=== PATIENT | male | born 1985 | race Caucasian/White ===

== ENCOUNTER 2017-02-06 13:30 | Emergency (ER) | payer MEDICAID ==
[2017-02-06 14:03] VITALS: TEMP 97.7
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
[2017-02-06] MEDS ORDERED: IBUPROFEN 600 MG TAB PO ONE (15:00)
[2017-02-06] MEDS ORDERED: OXYCODONE/APAP 5/325 TAB ONE (15:44)
[2017-02-06] MEDS ORDERED: OXYCODONE/APAP 5/325 TAB PO ONE (15:48)
[2017-02-06 16:08] VITALS: BP 119/71; PULSE 81; RESP 20; O2SAT 92
== END 2017-02-06 16:08 | disposition home or self-care (01) ==
DX: S70.01XA Contusion of right hip, initial encounter (principal); F17.200 Nicotine dependence, unspecified, uncomplicated; V18.0XXA Pedal cycle driver injured in noncollision transport accident in nontraffic accident, initial encounter; Y99.8 Other external cause status; Y93.89 Activity, other specified

== ENCOUNTER 2018-04-06 02:39 | Emergency (ER) | payer MEDICAID ==
[2018-04-06] MEDS ORDERED: HYDROCODONE/APAP 5/325 TAB ONE (03:00)
[2018-04-06] MEDS ORDERED: HYDROCODONE/APAP 5/325 TAB PO ONE (03:03)
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
[2018-04-06 03:41] VITALS: BP 119/79
[2018-04-06] MEDS ORDERED: HYDROCOD/APAP 5/325 PREPACK#6 BTL TAKEHOME ONE (03:52)
[2018-04-06] MEDS ORDERED: LIDOCAINE 4%/MENTHOL 1% PATCH TD ONE (03:53)
--- NOTE | 2018-04-06 12:42 | ASMTCMCOM ---
CM Note CM Note Notes: CM follow up for orthopedic referral: Patient contacted to confirm follow up with Dr. Zee after ER visit early this morning. Patient confirms that he did call sports medicine (Dr. Zee) and left a message. I have called sports med and spoke with [facility]ida regarding our referral. Patient ER report, shoulder x-ray, and patient demographics faxed [phone] to Zaida. She confirms that they will contact patient to schedule an appointment. Patient informed Date Signed: 04/06/2018 12:41 PM Electronically Signed By:Erin Robert RN
[2018-04-06] MEDS ORDERED: PATCH REMOVAL 1 EA PATCH TD SCH (21:00)
== END 2018-04-06 04:02 | disposition home or self-care (01) ==
DX: S42.021A Displaced fracture of shaft of right clavicle, initial encounter for closed fracture (principal); Z87.891 Personal history of nicotine dependence; X58.XXXA Exposure to other specified factors, initial encounter
CPT/HCPCS: A4565

== ENCOUNTER 2018-07-18 09:59 | Emergency (ER) | payer MEDICAID ==
[2018-07-18] MEDS ORDERED: OXYCODONE/APAP 5/325 TAB PO ONE (10:26)
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
[2018-07-18 11:33] VITALS: BP 130/78
== END 2018-07-18 11:33 | disposition home or self-care (01) ==
PROC: 0PSPXZZ Reposition Right Metacarpal, External Approach (ICD-10-PCS; principal; 2018-07-18)
DX: S62.241A Displaced fracture of shaft of first metacarpal bone, right hand, initial encounter for closed fracture (principal); V18.0XXA Pedal cycle driver injured in noncollision transport accident in nontraffic accident, initial encounter; Y92.830 Public park as the place of occurrence of the external cause; Z87.891 Personal history of nicotine dependence

== ENCOUNTER → 2018-11-18 | Outpatient (CLI) | payer MEDICAID | LOC: FIMAGING 11:29 | PROVIDERS: ATTEND Orthopaedic Surgery Sports Medicine | DX: F40.240 Claustrophobia (principal); M25.511 Pain in right shoulder ==

== ENCOUNTER 2019-01-13 15:27 | Inpatient (IN) | payer MEDICAID ==
[2019-01-13] MEDS ORDERED: IOPAMIDOL (ISOVUE-300) 100 ML BTL ONE ×2 (15:53→17:42)
[2019-01-13 15:59] LABS: PLATELET COUNT 232 10^3/uL (150-400)
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
[2019-01-13 16:14] LABS: INR 1.09 (0.83-1.16); PROTIME(PATIENT) 13.7 SEC (12.0-15.0)
[2019-01-13] MEDS ORDERED: PROPOFOL/EMULSION 500 MG/50 ML BOTTLE IV ONE (16:19)
[2019-01-13] MEDS ORDERED: ePHEDrine SULFATE 25 MG/5 ML SYR ONE (16:20)
[2019-01-13] MEDS ORDERED: PHENYLEPHRINE HCL 100 MCG/ML SYR ONE (16:20)
[2019-01-13] MEDS ORDERED: fentaNYL 100 MCG/2 ML INJ ONE ×2 (16:27→17:10)
[2019-01-13] MEDS ORDERED: ONDANSETRON 4 MG/2 ML VIAL ONE (16:30)
[2019-01-13] MEDS ORDERED: fentaNYL 100 MCG/2 ML INJ IVP ONE ×2 (17:02→18:00)
[2019-01-13] MEDS ORDERED: ONDANSETRON 4 MG/2 ML VIAL IVP ONE (17:03)
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
[2019-01-13] MEDS ORDERED: NALOXONE HCL 0.4 MG/ML INJ IVP PRN ×3 (17:09→21:11)
[2019-01-13] MEDS ORDERED: MEPERIDINE 25 MG/ML SYR IVP PRN (17:32)
[2019-01-13] MEDS ORDERED: fentaNYL 100 MCG/2 ML INJ IVP PRN (17:32)
[2019-01-13] MEDS ORDERED: FLUMAZENIL 0.5 MG/5 ML MDV IVP PRN (17:32)
[2019-01-13] MEDS ORDERED: GLUCAGON HCL 1 MG VIAL IVP PRN (17:32)
[2019-01-13] MEDS ORDERED: HEPARIN 10,000 UNIT/10 ML MDV (1,000 UNIT/ML) IVP PRN (17:32)
[2019-01-13] MEDS ORDERED: MIDAZOLAM 2 MG/2 ML VIAL IVP PRN (17:32)
[2019-01-13] MEDS ORDERED: PROTAMINE SULFATE 50 MG/5 ML VIAL IVP PRN (17:32)
[2019-01-13] MEDS ORDERED: ALTEPLASE 2 MG VIAL IVP PRN (17:32)
--- NOTE | 2019-01-13 17:51 | PDHPUP ---
History & Physical Update H&P update statement: This history and physical update is based on an assessment of the patient which was completed after admission or registration (within 24 hours), but prior to the surgery/procedure. Splenic laceration with abd hemorrhage. Hemodynamically stable. Discussed with Dr. Gudino of surgery, plan for transcatheter embolization of the splenic hemorrhage. With any hemodynamic compromise, plan for conversion to surgical splenectomy. H&P update: H&P reviewed & patient examined, no change in patient's condition since H&P completed
[2019-01-13] MEDS ORDERED: MIDAZOLAM 2 MG/2 ML VIAL ONE ×2 (18:05)
--- NOTE | 2019-01-13 18:38 | PDRADPN ---
Radiology Procedure Note Date of Procedure: 01/13/19 Radiologist: Jaiden Pena Anesthesia: IV Sedation Pre-op Diagnosis: Splenic laceration Post-op Diagnosis: Splenic laceration Indication: Intra-abdominal hemorrhage Procedure: Splenic artery embolization Finding(s): Gelfoam emoblization of splenic artery without complication Inf/Abcess present in the surg proc area at time of surgery?: No
--- NOTE | 2019-01-13 18:39 | PDPROPOC ---
Sedation Plan of Care Sedation Plan of Care: vital signs stable, mental status noted, patient educated of risks, benefits, alternatives, patient can tolerate sedation ASA Classification: ASA 3 Planned drugs: fentanyl, midazolam Mallampati Score: Class 1 Mallampati Reference Image: Patient passed 3-3-2 rule?: Yes
[2019-01-13] MEDS: ONDANSETRON 4 MG/2 ML VIAL IVP PRN ×2 (19:37→23:00)
[2019-01-13] MEDS: oxyCODONE IR 5 MG TAB PO PRN (19:37)
[2019-01-13] MEDS: FAMOTIDINE 20 MG/NACL 50 ML IV SCH (20:08)
[2019-01-13] MEDS: KETAMINE 500 MG in NS 500 ML IV SCH (21:34)
[2019-01-13] MEDS: morphINE PCA 30 MG/30 ML PCA IV PRN (22:04)
[2019-01-14] MEDS: morphINE PCA 30 MG/30 ML PCA IV PRN ×3 (01:53→21:52)
[2019-01-14] MEDS: KETAMINE 500 MG in NS 500 ML IV SCH (05:19)
[2019-01-14] MEDS: NS 1,000 ML IV SCH ×2 (06:32→16:17)
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
[2019-01-14 07:58] LABS: PLATELET COUNT 172 10^3/uL (150-400)
[2019-01-14] MEDS ORDERED: POLYETHYLENE GLYCOL 3350 17 GM PKT PO PRN (08:39)
[2019-01-14] MEDS ORDERED: MAGNESIUM HYDROXIDE 30 ML UDCUP PO PRN (08:39)
[2019-01-14] MEDS ORDERED: BISACODYL 10 MG SUPP PR PRN (08:39)
[2019-01-14] MEDS ORDERED: LACTULOSE 20 GM/30 ML UDCUP PO PRN (08:39)
[2019-01-14] MEDS: FAMOTIDINE 20 MG/NACL 50 ML IV SCH ×2 (09:26→20:22)
[2019-01-14] MEDS: SENNOSIDES/DOCUSATE SODIUM TAB PO SCH ×2 (09:26→20:36)
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
[2019-01-14] MEDS: ONDANSETRON 4 MG/2 ML VIAL IVP PRN (11:08)
[2019-01-14] MEDS: oxyCODONE IR 5 MG TAB PO PRN ×3 (11:53→21:58)
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
[2019-01-14] MEDS ORDERED: ZOLPIDEM TARTRATE 5 MG TAB PO PRN (21:23)
[2019-01-15] MEDS ORDERED: LIDOCAINE 4%/MENTHOL 1% PATCH TD ONE (01:00)
[2019-01-15] MEDS: oxyCODONE IR 5 MG TAB PO PRN ×2 (02:25→08:04)
[2019-01-15] MEDS: LORazepam 2 MG/ML INJ IVP PRN ×2 (02:26→22:23)
[2019-01-15] MEDS: morphINE PCA 30 MG/30 ML PCA IV PRN ×3 (02:32→14:01)
[2019-01-15 05:06] LABS: PLATELET COUNT 152 10^3/uL (150-400)
[2019-01-15] MEDS ORDERED: LORazepam 2 MG/ML INJ IVP ONE (06:00)
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
[2019-01-15] MEDS ORDERED: NS 1,000 ML IV ONE (07:31)
[2019-01-15] MEDS ORDERED: IOPAMIDOL (ISOVUE 370) 100 ML BTL IV ONE (08:14)
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
[2019-01-15] MEDS ORDERED: CITRATE DEXTROSE SOLN 500 ML BAG ONE (09:09)
[2019-01-15] MEDS ORDERED: BUPIVACAINE 0.25% 30 ML SDV ONE (09:11)
[2019-01-15] MEDS ORDERED: BACITRACIN 50,000 UNITS/10 ML SYR IRR ONE (09:12)
[2019-01-15] MEDS ORDERED: POLYMYXIN B SULFATE 500,000 UNIT/10 ML SYR IRR ONE (09:12)
[2019-01-15] MEDS: LR 1,000 ML IV SCH ×3 (09:30→21:24)
[2019-01-15] MEDS ORDERED: MIDAZOLAM 2 MG/2 ML VIAL IVP ONE (09:38)
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
[2019-01-15] MEDS ORDERED: LIDOCAINE 2% 100 MG/5 ML SYR ONE (09:43)
[2019-01-15] MEDS ORDERED: PROPOFOL 200 MG/20 ML VIAL ONE (09:43)
[2019-01-15] MEDS ORDERED: fentaNYL 100 MCG/2 ML INJ ONE (09:43)
[2019-01-15] MEDS ORDERED: ROCURONIUM 50 MG/5 ML VIAL ONE (09:44)
[2019-01-15] MEDS ORDERED: ceFAZolin 2 GM/DEXTROSE 100 ML IV ONE (10:07)
[2019-01-15] MEDS ORDERED: PHM DO NOT USE-BUPIVACAINE 0.25% THORACOTOMY MISC SCH (10:15)
[2019-01-15] MEDS ORDERED: BUPIVACAINE 0.25% 270 ML in PUMP SET 1 EA NB SCH (10:30)
[2019-01-15] MEDS ORDERED: HYDROmorphONE/DILAUDID 2 MG/ML INJ ONE (11:28)
--- NOTE | 2019-01-15 11:37 | POSTOPPROG ---
Post Op Note Date of Operation: 01/15/19 Surgeon: Ryan Ruiz (, FACS) Access Database Developer: Sunitha Daly RN-FA Anesthesia: GET(General Endotracheal) Pre-op Diagnosis: ruptured spleen Post-op Diagnosis: same Indication: hemorrhagic shock Procedure: exp lap/splenectomy Findings: hemoperitoneum with active splenic arterial hemorrhage Inf/Abcess present in the surg proc area at time of surgery?: No Total fluids administered: 2000ml crystaloid, 2750 ml cell saver, 1 PRBC, 2 FFP Complications: none Bowel Protocol: N/A Clean Closure Performed: N/A Specimen(s): spleen upper and lower pole
[2019-01-15] MEDS ORDERED: NALOXONE HCL 0.4 MG/ML INJ IVP PRN (11:50)
[2019-01-15] MEDS ORDERED: HYDROCODONE/APAP 5/325 TAB PO PRN (11:50)
[2019-01-15] MEDS ORDERED: ONDANSETRON 4 MG/2 ML VIAL IVP PRN (11:50)
[2019-01-15] MEDS ORDERED: ACETAMINOPHEN 500 MG TAB PO PRN (11:50)
[2019-01-15] MEDS ORDERED: PROMETHAZINE HCL 25 MG/ML INJ IVP PRN (11:50)
[2019-01-15] MEDS ORDERED: oxyCODONE IR 5 MG TAB PO PRN (11:50)
[2019-01-15] MEDS ORDERED: HYDROmorphONE/DILAUDID 2 MG/ML INJ IVP PRN (11:50)
--- NOTE | 2019-01-15 11:53 | POSTANESTH ---
Post Anesthetic Evaluation Cardiovascular Status: Normal, Stable, Similar to Pre-Op Cond Respiratory Status: Normal, Stable, Similar to Pre-op Cond. Level of Consciousness/Mental Status: Can Participate in Eval, Alert and Oriented Pain Control: Adequate, Prn Tx Ordered Nausea/Vomiting Control: Adequate, Prn Tx Ordered Complications Possibly Related to Anesthesia: None Noted
[2019-01-15] MEDS: fentaNYL 100 MCG/2 ML INJ IVP PRN ×2 (12:30→12:40)
[2019-01-15] MEDS ORDERED: PATCH REMOVAL 1 EA PATCH TD ONE (13:00)
[2019-01-15] MEDS: SENNOSIDES/DOCUSATE SODIUM TAB PO SCH ×2 (14:11→21:22)
[2019-01-15] MEDS: FAMOTIDINE 20 MG/NACL 50 ML IV SCH ×2 (14:11→21:21)
--- NOTE | 2019-01-15 15:49 | GOP ---
[f rep st] OPERATIVE REPORT DATE OF OPERATION: 01/15/2019 SURGEON: Ryan Ruiz MD, FACS CREDIT REVIEW OFFICER: MICKEY Sherman. ANESTHESIA: General endotracheal. ANESTHESIOLOGIST: Justin Portillo MD. PREOPERATIVE DIAGNOSIS: 1. Hemoperitoneum with evidence of hemorrhagic shock. 2. Splenic rupture status post Gel-Foam embolization, 01/13/2019. POSTOPERATIVE DIAGNOSIS: 1. Hemoperitoneum with evidence of hemorrhagic shock. 2. Splenic rupture status post Gel-Foam embolization, 01/13/2019. PROCEDURE PERFORMED: 1. Exploratory laparotomy. 2. Splenectomy. FINDINGS: 1. Splenic rupture through the hilum into the outer capsule, essentially bivalving the spleen into an upper and lower pole. 2. Active arterial hemorrhage from one of the splenic arterial branches and a thrombosed avulsed splenic vein. 3. Minor contusion to the small bowel mesentery. No other traumatic sequelae identified. ESTIMATED BLOOD LOSS: Estimated at 5 liters; however, this is based on the Cell Saver returning 2750 mL of washed blood back to the patient. Patient received in addition 1 unit of packed red blood cells during surgery, 2 units of FFP, and 2000 mL of crystalloid. DESCRIPTION OF PROCEDURE: After informed consent was obtained, the patient was brought emergently to the operating room for splenectomy. Typed and cross- matched blood was called for and fresh frozen plasma was prepared. He had received 2 units of packed red blood cells on the day of admission and prior to angio embolization of a splenic arterial hemorrhage. Two g of Ancef were administered preoperatively. The patient was placed on the operating table. Warming devices were deployed. He was placed under general anesthesia and SCD stockings were in place. A Duran catheter was placed. The abdomen was prepped and draped in the usual fashion. Before proceeding, a time-out and identification of the patient was performed. The abdomen was entered through a midline incision just below the umbilicus to the right of midline. Cautery was used for hemostasis. A large hemoperitoneum was evacuated with the Cell Saver using a double hose set up. After the blood had been evacuated, the left upper quadrant was packed with lap sponges and hemostasis was achieved with compression. This allowed inspection of the remainder of the abdominal cavity for secondary unrecognized injuries. The bowel was quickly run with no injuries identified, other than a small serosal tear that probably occurred from entering the peritoneal cavity. This was oversewn with interrupted 3-0 Vicryl suture. Returning to the left upper quadrant, now having deployed the Omni-Tract retractor to facilitate exposure, the spleen was visualized and noted to be bivalved through the hilum in almost 2 nearly equal pieces. These were attached by a central clot. There was active oozing near the hilum of the spleen. This could not be clearly visualized until the spleen was fully mobilized. Using the LigaSure device, the splenocolic ligament was taken down reflecting the transverse colon and splenic flexure inferiorly. This allowed entrance into the lesser sac. The pancreas was noted to be moderately contused or secondarily stained by blood, but was, otherwise, anatomically intact. Direct pressure was applied to the tail of the pancreas as the dissection was continued to prevent further bleeding. The inferior portion of the spleen was completely avulsed from the hilum and was removed after it was detached from the splenocolic ligaments. The cephalad portion of the spleen was still attached by the short gastric vessels. These were taken down using the LigaSure starting inferiorly in and completing the dissection near the fundus of the stomach. The splenophrenic ligament was taken down sharply off the diaphragm, removing the upper pole portion of the gland, which remained tethered to the hilum by 1 arterial branch. This was divided with the ligature and then secured on the patient's side with a hemoclip. After this portion of the spleen was removed and the area was irrigated for hemostasis, it was clear that there was arterial hemorrhage coming from an inferior branch of the splenic artery. This was clamped and suture ligated with a 3-0 Prolene suture. A thrombosed splenic vein was identified. This was also clamped and suture ligated with 3-0 Prolene suture. The area was copiously irrigated with warm normal saline until the effluent was clear. Hemostasis appeared secure upon completion. A piece of Surgicel was placed over the tail of the pancreas, primarily for adhesion barrier to the left upper quadrant. The bowel was run from the ligament of Treitz to the ileocecal valve with only minor contusion of small bowel mesentery noted. The large bowel showed no evidence of injury. The patient's liver was intact. A nasogastric tube was passed by Dr. Portillo and confirmed to be in the patient's stomach by palpation. There was no apparent gastric injury. As mentioned previously, the pancreas was blood-stained, but not swollen and without palpable evidence of disruption. There was no retroperitoneal hematoma identified. Bilateral ON-Q catheters were placed into the posterior rectus sheath by palpation and a blunt tunneling device. This was advanced from the inferior portion of the incision cephalad to the costal margin. The midline incision was then closed with a continuous running looped #1 PDS suture. Skin was closed with coleman. The ON-Q catheters were primed and aspirated and hemostasis appeared secure. They were secured to the skin with Dermabond. Sterile dressings were applied. The ON-Q catheters were connected to a 270 mL pump at 2+2 mL/h. Patient was returned, extubated to the recovery room in satisfactory condition. COUNT: Needle, sponge, and instrument count were correct. /[id number]/MODL MTDD
[2019-01-15 19:46] LABS: PLATELET COUNT 88 10^3/uL (150-400)
[2019-01-15] MEDS ORDERED: PNEUMOC 13-VAL CONJ-DIP CRM/PF 0.5 ML SYR (PREVNAR 13) IM ONE (20:18)
[2019-01-15] MEDS ORDERED: MENINGOCOCCAL 4 MCG/0.5 ML VIAL (MENACTRA) IM ONE (20:18)
[2019-01-16] MEDS: LORazepam 2 MG/ML INJ IVP PRN ×2 (03:39→08:37)
[2019-01-16] MEDS: LR 1,000 ML IV SCH (05:22)
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
[2019-01-16] MEDS: FAMOTIDINE 20 MG/NACL 50 ML IV SCH ×2 (08:30→21:16)
[2019-01-16] MEDS ORDERED: ENOXAPARIN 40 MG/0.4 ML SYR SC SCH (09:00)
--- NOTE | 2019-01-16 09:54 | ASMTCMCOM ---
CM Note CM Note Notes: Pt underwent splenectomy with Dr. Ruiz yesterday. PT/OT evals pending. CM to follow. Plan: TBD Date Signed: 01/16/2019 09:53 AM Electronically Signed By:FAISAL Farrell
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
[2019-01-16] MEDS: morphINE PCA 30 MG/30 ML PCA IV PRN ×3 (10:44→23:46)
--- NOTE | 2019-01-16 11:08 | TRAUMAPN ---
Trauma Progress Note Assessment/Plan: POD#1 01/16/2019 Assessment: Doing well, VSS, Lipase/hct stable, Long discussion regarding the reasons for not feeding yet carried out Right UCL to be repaired as outpatient Plan: meds adjusted Ambulation increased hope to transfer out of ICU today Objective: Vital Signs Temp Pulse Resp BP Pulse Ox 37.9 C 75 21 H 129/72 H 92 01/16/19 08:00 01/16/19 10:00 01/16/19 10:00 01/16/19 10:00 01/16/19 10:00 Laboratory Results 01/16/19 06:10 01/16/19 08:25 01/15/19 01/16/19 01/17/19 05:59 05:59 05:59 Intake Total 2599 1990 Output Total 300 6970 Balance 2299 -4980 PT 13.7 SEC (12.0-15.0) 01/13/19 15:45 INR 1.09 (0.83-1.16) 01/13/19 15:45 - C-Spine Clearance Cervical Spine Cleared: Yes Provider who Cleared Cervical Spine: Shahab Physical Exam - Physical Exam General Appearance: WD/WN, alert, no apparent distress Neck: non-tender, full range of motion Respiratory: chest non-tender, lungs clear, normal breath sounds Cardiac/Chest: regular rate, rhythm Abdomen: non-tender, soft, other (incision dry, hypoactive bowel sounds) Male Genitalia: deferred Rectal: deferred Back: Normal inspection Skin: normal color, warm/dry Extremities: normal range of motion, other (splint reapplied to right wrist/ thumb) Neuro/Psych: no motor/sensory deficits, alert, normal mood/affect, oriented x 3 (35)
[2019-01-16] MEDS: KETOROLAC 30 MG/1 ML SDV IVP SCH ×3 (11:43→23:49)
[2019-01-16] MEDS: ACETAMINOPHEN 500 MG TAB PO SCH ×2 (15:21→21:16)
[2019-01-17] MEDS: KETOROLAC 30 MG/1 ML SDV IVP SCH ×4 (05:19→23:12)
[2019-01-17] MEDS: ACETAMINOPHEN 500 MG TAB PO SCH ×3 (05:19→20:55)
[2019-01-17] MEDS: FAMOTIDINE 20 MG/NACL 50 ML IV SCH (09:27)
[2019-01-17] MEDS ORDERED: ZOLPIDEM TARTRATE 5 MG TAB PO SCH (21:00)
[2019-01-18] MEDS: ACETAMINOPHEN 500 MG TAB PO SCH ×3 (05:19→20:06)
[2019-01-18] MEDS: KETOROLAC 30 MG/1 ML SDV IVP SCH ×3 (05:19→17:42)
[2019-01-18] MEDS: HYDROmorphONE/DILAUDID 2 MG TAB PO PRN ×2 (10:06→16:54)
[2019-01-18] MEDS ORDERED: HAEMOPH B POLY CONJ-TET TOX/PF 0.5 ML VIAL IM ONE (12:37)
--- NOTE | 2019-01-18 13:07 | TRAUMAPN ---
Trauma Progress Note Assessment/Plan: POD#1 01/16/2019 Assessment: Doing well, VSS, Lipase/hct stable, Long discussion regarding the reasons for not feeding yet carried out Right UCL to be repaired as outpatient Plan: meds adjusted Ambulation increased hope to transfer out of ICU today POD#2 01/17/2019 See paper notes- system down POD#3 01/18/2019 Assessment: Doing well, Bradycardia of this AM (etiology unclear) resolving. Eating, Incision clean and dry, HiB vaccine today, possibly home this evening. Platelet count not yet elevated. Plan: discharge this evening if continues to do well with F/u with Dr. Ruiz next week for recheck platelet count and staple removal. Subjective: may appetite is improving Objective: Vital Signs Temp Pulse Resp BP Pulse Ox 36.9 C 50 L 16 131/77 H 96 01/18/19 11:39 01/18/19 11:39 01/18/19 11:39 01/18/19 11:39 01/18/19 11:39 Laboratory Results 01/17/19 05:15 01/16/19 08:25 01/17/19 01/18/19 01/19/19 05:59 05:59 05:59 Intake Total 1444 500 Output Total 1525 300 Balance -81 200 PT 13.7 SEC (12.0-15.0) 01/13/19 15:45 INR 1.09 (0.83-1.16) 01/13/19 15:45 - C-Spine Clearance Cervical Spine Cleared: Yes Provider who Cleared Cervical Spine: [place] Physical Exam - Physical Exam General Appearance: WD/WN, alert, no apparent distress Respiratory: chest non-tender, lungs clear, normal breath sounds, other (No E to A changes) Cardiac/Chest: regular rate, rhythm Abdomen: normal bowel sounds, non-tender, soft, other (incision clean and dry) Male Genitalia: deferred Rectal: deferred Back: Normal inspection Skin: normal color, warm/dry Extremities: normal range of motion, non-tender, normal inspection Neuro/Psych: no motor/sensory deficits, alert, normal mood/affect, oriented x 3 Time Spent w/Patient (minutes): 15
[2019-01-18 15:29] VITALS: BP 112/82
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
[2019-01-18] MEDS ORDERED: LIDOCAINE 4%/MENTHOL 1% PATCH TD SCH (17:30)
[2019-01-18] MEDS ORDERED: PATCH REMOVAL 1 EA PATCH TD SCH (21:00)
--- NOTE | 2019-01-19 07:33 | GDS ---
[f rep st] DISCHARGE SUMMARY DISCHARGE DIAGNOSES: 1. Grade 4 splenic rupture. 2. Right ulnar collateral ligament injury. SURGERY: A splenectomy. CONDITION AT DISCHARGE: Good. DISPOSITION: Home. There are no dietary restrictions. There are no restrictions on his dietary texture. He will be dismissed on Tylenol 1000 mg every 8 hours and Toradol 10 mg every 6 hours (x4 days). Dilaudid 2 mg to 4 mg used every 4 hours as needed for severe pain. He will use a topical Lidoderm patch as needed. RESTRICTIONS: Orthopedics would like to see his right thumb braced at all times , and he is to do no heavy gripping with his right hand. He will use his other digits besides the thumb and will follow up with Rodney Damon in 1 week. The UCL injury will be repaired as an outpatient. He is to follow up with Dr. Ruiz next week. He will obtain a platelet count on 01/24. For the next 3 weeks, he is to lift less than 10 pounds with no activity except for gentle walking. He is to shower only. He is to take a multivitamin with 100% of the SOFTWARE QUALITY ENGINEER of the zinc, copper, and C daily. Again, he will follow up with Dr. Ruiz next week and Dr. Damon next week as well. HOSPITAL COURSE: The patient was admitted. His grade 4 splenic injury was treated with embolization; however, this failed, and he had a drop in his hematocrit and pressure. He was taken to the operating room where splenectomy was performed. Note is made he already has received Prevnar 13, Menactra, and Haemophilus influenzae B. On the day of discharge, he was complaining of a bit of a soreness in his left back. There was no obvious sign of rib fracture on initial CT nor was there evidence of rib tenderness with examination. He can use a Lidoderm patch in this region if issues persist. Followup studies will be obtained. /[id number]/MODL MTDD
== END 2019-01-18 20:14 | disposition home or self-care (01) | DRG 650 ==
LOC: OBSVTOIN 17:12 → F2N 18:51 → F3N 01-14 19:54 → F2N 01-15 09:39 → F3E 01-16 18:09
PROVIDERS: ADMIT Surgery; ATTEND Surgery
PROC: 04L43DZ Occlusion of Splenic Artery with Intraluminal Device, Percutaneous Approach (ICD-10-PCS; 2019-01-13)
PROC: 30233N1 Transfusion of Nonautologous Red Blood Cells into Peripheral Vein, Percutaneous Approach (ICD-10-PCS; 2019-01-13)
PROC: 30233K1 Transfusion of Nonautologous Frozen Plasma into Peripheral Vein, Percutaneous Approach (ICD-10-PCS; 2019-01-15)
PROC: 07TP0ZZ Resection of Spleen, Open Approach (ICD-10-PCS; principal; 2019-01-15 11:00)
DX: S36.09XA Other injury of spleen, initial encounter (principal); S53.31XA Traumatic rupture of right ulnar collateral ligament, initial encounter; V19.3XXA Pedal cyclist (driver) (passenger) injured in unspecified nontraffic accident, initial encounter; Y93.55 Activity, bike riding; Z87.891 Personal history of nicotine dependence; Z23 Encounter for immunization
CPT/HCPCS: 80307; 82435-PO; 82565-PO; 82947-PO; 84132-PO; 84295-PO; 84520-PO; 85014-ER; 92507-GN; 92523-GN; 96374; 97161-GP; 97165-GO; C1769; G0009; G0480; J0690; J1170; J1650; J1885; J2001; J2060; J2250; J2270; J2370; J2405; J2704; J3010; P9016; P9017; P9021; Q9967

== ENCOUNTER 2019-02-05 10:31 | Day surgery (SDC) | payer MEDICAID ==
[~2019-02-05 10:31] MED LIST: LIDOCAINE 2% 100 MG/5 ML SYR ONE; PROPOFOL/EMULSION 500 MG/50 ML BOTTLE IV ONE; fentaNYL 100 MCG/2 ML INJ ONE
[2019-02-05] MEDS ORDERED: ceFAZolin 2 GM/DEXTROSE 100 ML IV ONE (10:43)
[2019-02-05] MEDS ORDERED: LR 1,000 ML IV ONE (10:45)
--- NOTE | 2019-02-05 11:07 | PDHPUP ---
History & Physical Update H&P update statement: This history and physical update is based on an assessment of the patient which was completed after admission or registration (within 24 hours), but prior to the surgery/procedure. H&P update: H&P reviewed & patient examined, no change in patient's condition since H&P completed
[2019-02-05] MEDS ORDERED: BACITRACIN 50,000 UNITS/10 ML SYR IRR ONE (11:11)
[2019-02-05] MEDS ORDERED: BUPIVACAINE/EPI 0.5% 30 ML SDV ONE (11:11)
[2019-02-05] MEDS ORDERED: MIDAZOLAM 2 MG/2 ML VIAL IVP ONE (11:18)
--- NOTE | 2019-02-05 11:18 | PDANEPAE ---
ANE History of Present Illness here for right thumb ligament repair after rupture ANE Past Medical History - Cardiovascular History Hx Hypertension: No Hx Arrhythmias: No Hx Chest Pain: No Hx Coronary Artery / Peripheral Vascular Disease: No Hx CHF / Valvular Disease: No Hx Palpitations: No - Pulmonary History Hx COPD: No Hx Asthma/Reactive Airway Disease: No Hx Recent Upper Respiratory Infection: No Hx Oxygen in Use at Home: No Hx Sleep Apnea: No Sleep Apnea Screening Result - Last Documented: Negative - Neurologic History Hx Cerebrovascular Accident: No Hx Seizures: Yes Hx Dementia: No Neurologic History Comment: poss hx of seizure with etoh withdrawl in 2014 - Endocrine History Hx Diabetes: No - Renal History Hx Renal Disorders: No - Liver History Hx Hepatic Disorders: No - Neurological & Psychiatric Hx Hx Neurological and Psychiatric Disorders: No - Cancer History Hx Cancer: No - Congenital Disorder History Hx Congenital Disorders: No - GI History Hx Gastrointestinal Disorders: No - Chronic Pain History Chronic Pain: No - Surgical History Prior Surgeries: 01/15/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 right clavicle repair ANE Review of Systems Review of Systems: - Exercise capacity METS (RN): 5 METS ANE Patient History - Allergies Allergies/Adverse Reactions: No Known Allergies Allergy (Verified 02/02/19 16:45) - NPO status NPO Since - Liquids (Date): 02/05/19 NPO Since - Liquids (Time): 08:45 NPO Since - Solids (Date): 02/04/19 NPO Since - Solids (Time): 22:00 - Smoking Hx Smoking Status: Former smoker - Family Anes Hx Family Hx Anesthesia Complications: none ANE Labs/Vital Signs - Vital Signs Blood Pressure: 106/77 Heart Rate: 64 Respiratory Rate: 16 O2 Sat (%): 98 Height: 187.96 cm Weight: 75.75 kg ANE Physical Exam - Airway Neck exam: FROM Mallampati Score: Class 1 Mouth exam: normal dental/mouth exam - Pulmonary Pulmonary: no respiratory distress, no rales or rhonchi - Cardiovascular Cardiovascular: regular rate and rhythym, no murmur, rub, or gallop - ASA Status ASA Status: II ANE Anesthesia Plan Anesthesia Plan: GA with mask Total IV Anesthesia: Yes
[2019-02-05] MEDS ORDERED: MIDAZOLAM 2 MG/2 ML VIAL ONE (11:31)
[2019-02-05] MEDS ORDERED: PROPOFOL/EMULSION 500 MG/50 ML BOTTLE IV ONE (12:04)
[2019-02-05] MEDS ORDERED: PROPOFOL 200 MG/20 ML VIAL ONE (12:55)
[2019-02-05] MEDS ORDERED: HYDROmorphONE/DILAUDID 2 MG/ML INJ IVP PRN (13:04)
[2019-02-05] MEDS ORDERED: DIAZEPAM 5 MG/ML 1 ML SYR IVP PRN (13:04)
[2019-02-05] MEDS ORDERED: ONDANSETRON 4 MG/2 ML VIAL IVP PRN (13:04)
[2019-02-05] MEDS ORDERED: HYDROCODONE/APAP 5/325 TAB PO PRN (13:04)
[2019-02-05] MEDS ORDERED: MEPERIDINE 25 MG/0.5 ML AMP IVP PRN (13:04)
[2019-02-05] MEDS ORDERED: fentaNYL 100 MCG/2 ML INJ IVP PRN (13:04)
[2019-02-05] MEDS ORDERED: NALOXONE HCL 0.4 MG/ML INJ IVP PRN (13:04)
--- NOTE | 2019-02-05 13:26 | POSTANESTH ---
Post Anesthetic Evaluation Cardiovascular Status: Normal, Stable Respiratory Status: Normal, Stable Level of Consciousness/Mental Status: Can Participate in Eval, Alert and Oriented Pain Control: Adequate, Prn Tx Ordered Nausea/Vomiting Control: Adequate, Prn Tx Ordered Complications Possibly Related to Anesthesia: None Noted
[2019-02-05] MEDS ORDERED: KETOROLAC 30 MG/1 ML SDV ONE (13:45)
[2019-02-05] MEDS ORDERED: HYDROCODONE/APAP 5/325 TAB ONE (14:10)
[2019-02-05 14:55] VITALS: BP 108/71
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
== END 2019-02-05 14:46 | disposition home or self-care (01) ==
LOC: FSGY 10:31
PROVIDERS: ATTEND Orthopaedic Surgery Hand Surgery
PROC: 0MQ70ZZ Repair Right Hand Bursa and Ligament, Open Approach (ICD-10-PCS; principal; 2019-02-05 11:37)
DX: S53.31XA Traumatic rupture of right ulnar collateral ligament, initial encounter (principal); S63.641A Sprain of metacarpophalangeal joint of right thumb, initial encounter; V19.3XXA Pedal cyclist (driver) (passenger) injured in unspecified nontraffic accident, initial encounter; Y93.55 Activity, bike riding; Y92.39 Other specified sports and athletic area as the place of occurrence of the external cause; Y99.0 Civilian activity done for income or pay; Z90.81 Acquired absence of spleen
CPT/HCPCS: C1713; J0690; J1885; J2001; J2250; J2704; J3010

== ENCOUNTER → 2019-03-31 | Outpatient (CLI) | payer MEDICAID | LOC: FIMAGING 09:39 | PROVIDERS: ATTEND Orthopaedic Surgery Sports Medicine | DX: M25.511 Pain in right shoulder (principal); G89.29 Other chronic pain ==

== ENCOUNTER 2019-04-13 15:10 | Emergency (ER) | payer MEDICAID | END 2019-04-13 17:04 | disposition home or self-care (01) ==